=== PATIENT | male | born 1985 | race Caucasian/White ===

== ENCOUNTER 2023-10-15 11:41 | Emergency (ER) | payer OTHER ==
[~2023-10-15] VITALS: Ht 165.1 cm; Wt 70.8 kg
[2023-10-15 11:47] VITALS: PULSE 85; RESP 16; TEMP 98.1; O2SAT 100
[2023-10-15] MEDS ORDERED: AMOX TR-K CLV1 EAC2 PO (12:08)
[2023-10-15] MEDS ORDERED: NEOMYCIN-POLYMY10 ML LEFT EAR (12:11)
[2023-10-15] MEDS ORDERED: ULTRAM 50MG50 MG PO (12:12)
== END 2023-10-15 12:35 | disposition home or self-care (01) ==
LOC: FSED 11:49
DX: H66.92 Otitis media, unspecified, left ear (principal); H60.92 Unspecified otitis externa, left ear; K02.9 Dental caries, unspecified; S02.5XXA Fracture of tooth (traumatic), initial encounter for closed fracture; F17.210 Nicotine dependence, cigarettes, uncomplicated
CPT/HCPCS: 99283

== ENCOUNTER 2024-09-19 15:43 | Emergency (ER) | payer OTHER ==
[~2024-09-19] VITALS: Ht 165.1 cm; Wt 74.0 kg
[~2024-09-19 15:43] MED LIST: AMOX TR-K CLV1 EAC2 PO; NEOMYCIN-POLYMY10 ML LEFT EAR; ULTRAM 50MG50 MG PO
[2024-09-19 16:07] VITALS: TEMP 98.8
[2024-09-19] MEDS: SODIUM CHLORIDE 0.9% 1000ML 1,000 ML IV STA (16:59)
[2024-09-19] MEDS: ONDANSETRON HCL INJ 2MG/ML 2ML 2 MG/ML VIAL IV ONE (16:59)
[2024-09-19] MEDS: KETOROLAC TROMETHAMINE 30 MG/ML VIAL IV ONE (17:00)
[2024-09-19] MEDS: FAMOTIDINE 20 MG/2 ML VIAL IV ONE (17:00)
[2024-09-19] MEDS ORDERED: ONDANSETRON ODT4 MG PO (17:30)
[2024-09-19] MEDS ORDERED: FAMOTIDINE20 MG PO (17:30)
[2024-09-19 17:39] VITALS: PULSE 63; RESP 19; O2SAT 97
== END 2024-09-19 17:44 | disposition home or self-care (01) ==
LOC: FSED 15:50
DX: R07.9 Chest pain, unspecified (principal); R55 Syncope and collapse; R11.2 Nausea with vomiting, unspecified; K29.70 Gastritis, unspecified, without bleeding
CPT/HCPCS: 71046; 80053; 81003; 83880; 84484; 85025; 85379; 93005; 96374; 96375; 99284; J1308; J1885; J2405; J7030